=== PATIENT | female | born 1950 | race Caucasian/White ===

== ENCOUNTER 2017-12-16 08:18 | Inpatient (IN) | payer OTHER ==
[2017-11-25 11:11] VITALS: BMI 26.0
--- NOTE | 2017-11-25 11:38 | PAT Medication Instructions ---
Service Date Nov 25, 2017. Current Home Medication List Acetaminophen (Tylenol), 1,000 MG PO prn Medication Instructions For Your Scheduled Surgery - Take the following medications the morning of surgery with a sip of water: Acetaminophen (Tylenol), 1,000 MG PO prn (can take if needed up to four hours before surgery) - Take the following medications as scheduled the night before surgery: Acetaminophen (Tylenol), 1,000 MG PO prn If you have any questions please call us at [phone] or [phone] or [phone]
--- NOTE | 2017-11-25 12:22 | DIAGNOSTIC IMAGING REPORT ---
CHEST 2 VIEWS ROUTINE HISTORY: 67 years-old Female PAT preoperative exam. No acute chest complaints. COMPARISON: None available TECHNIQUE: Single PA view of the chest. A lateral view was not available at time of dictation. FINDINGS: Cardiomediastinal and hilar silhouettes are within normal limits. There is no pneumothorax, pleural effusion, focal airspace consolidation or overt pulmonary edema. Bones of the chest appear grossly intact. Degenerative changes are seen within the shoulders and spine. IMPRESSION: No acute process. The above report was generated using voice recognition software. It may contain grammatical, syntax or spelling errors. Electronically signed by: Ede Ordoñez M.D. 11/25/2017 12:20 PM Dictated Date/Time: 11/25/2017 12:19 PM
[2017-11-25 12:31] LABS: BASO % 0.7 %; BASO ABS # 0.06 K/uL (0-0.2); EOS % 1.6 %; EOS ABS # 0.14 K/uL (0-0.5); HEMATOCRIT 44.3 % (37-47); IG# 0.02 K/uL (0.00-0.02); LYMPH % 29.4 %; LYMPH ABS # 2.56 K/uL (1.2-3.4); MEAN CELL VOLUME 90.4 fL (80-100); MEAN CORPUSCULAR HEMOGLOBIN 30.6 pg (25-34); MEAN CORPUSCULAR HGB CONC 33.9 g/dl (32-36); MEAN PLATELET VOLUME 9.8 fL (7.4-10.4); MONO % 5.4 %; MONO ABS # 0.47 K/uL (0.11-0.59); NEUT % 62.7 %; NEUT ABS # 5.47 K/uL (1.4-6.5); PLATELET COUNT 200 K/uL (130-400); RED CELL DISTRIBUTION WIDTH SD 42.5 fL (36.4-46.3); WHITE BLOOD COUNT 8.72 K/uL (4.8-10.8)
[2017-11-25 13:45] LABS: HEMOGLOBIN A1C 5.2 % (4.5-5.6)
[2017-11-25 14:01] LABS: ALBUMIN 3.5 gm/dl (3.4-5.0); CALCIUM 9.2 mg/dl (8.5-10.1); CREATININE 0.78 mg/dl (0.60-1.20); POTASSIUM 3.9 mmol/L (3.5-5.1)
--- NOTE | 2017-12-15 09:12 | HISTORY & PHYSICAL EXAMINATION ---
DATE OF ADMISSION: 12/16/2017 CHIEF COMPLAINT: Left knee pain. HISTORY OF PRESENT ILLNESS: The patient is a 67-year-old female with known osteoarthritis about her bilateral knees, left worse than right. She has had previous corticosteroid and viscosupplementation injections with short-term relief. Due to ongoing pain and disability with activities of daily living, she now desires to proceed with left total knee arthroplasty. PAST MEDICAL HISTORY: DVT x2. PAST SURGICAL HISTORY: Plastic surgery on her lip as a child. MEDICATIONS: None. ALLERGIES: None. SOCIAL HISTORY: She states a 90-cfmj-cvsi smoking history. REVIEW OF SYSTEMS: Noncontributory. PHYSICAL EXAMINATION: GENERAL: Well-nourished, well-developed, thin elderly female who appears her stated age. HEENT: Normocephalic, atraumatic, extraocular movements intact, oropharynx pink and moist. NECK: Supple without adenopathy. LUNGS: Clear to auscultation bilaterally. HEART: Regular rate and rhythm. ABDOMEN: Soft, nontender, nondistended. EXTREMITIES: The upper extremities are within normal limits. The left knee has a varus alignment. Her range of motion is from 0-135 degrees. X-RAYS: X-rays were reviewed. She has a varus aligned knee. She has moderate degenerative changes about the medial compartment of the left knee with joint space narrowing and osteophyte formation. She has severe patellofemoral DJD with large osteophytes and joint space narrowing. ASSESSMENT: Left knee degenerative joint disease. PLAN: Risks versus benefits were discussed, consent was obtained. The patient's primary care physician is [facility]. We will proceed with left total knee arthroplasty as indicated.
[2017-12-16] VITALS (8 sets, daily range): BP systolic 119–147; BP diastolic 53–76; PULSE 63–93; TEMP 36.4–36.9; O2SAT 96–100; Ht 160 cm; Wt 66.6 kg
[~2017-12-16] VITALS: Ht 160 cm; Wt 66.6 kg
[~2017-12-16 08:18] MED LIST: ACET-1256 PO; ACETAMINOPHEN 500 MG TAB PO SCH; BUPIVACAINE 0.5 % 5 MG/1 ML PF 10ML VIAL ONE; CEFAZOLIN 1000MG IV PUSH 7.5 ML IV SCH; CeleBREX 200 MG CAP PO SCH; DEXAMETHASONE 4 MG TAB PO SCH; FAMOTIDINE 20 MG TAB PO SCH; GABAPENTIN 300 MG CAP PO SCH; LACTATED RINGER'S 1000ML 1,000 ML IV SCH; LACTATED RINGER'S 1000ML 500 ML IV SCH; LACTATED RINGER'S 1000ML IV SCH; METOCLOPRAMIDE HCL 10 MG TAB PO SCH; ROPIVACAINE 0.5% 5 MG/ML 30 ML VIAL ONE; ROPIVACAINE 5MG/ML 30 ML 150 MG, BUPIVACAINE 0.5% MPF INJ 30 ML, EpINEphrine HCL INJ 0.... INFIL SCH
[2017-12-16] MEDS ORDERED: ONDANSETRON INJ 2 MG/ML 2 ML VIAL IV PRN ×2 (08:45→12:30)
[2017-12-16] MEDS ORDERED: HYDROmorphone INJ 2 MG/ML SYR/VIAL IV PRN (08:45)
[2017-12-16] MEDS ORDERED: ATROPINE SULFATE 0.1 MG/ML 5ML SYR IV PRN (08:45)
[2017-12-16] MEDS ORDERED: EpHEDrine SULFATE INJ 50 MG/ML AMP IV PRN (08:45)
[2017-12-16] MEDS ORDERED: PHENYLEPHRINE 100MCG/ML 5ML SYR IV PRN (08:45)
[2017-12-16 09:22] LABS: PTT PATIENT 28.2 SECONDS (21.0-31.0)
[2017-12-16] MEDS ORDERED: MIDAZOLAM HCL 1 MG/ML 2ML VIAL ONE (09:40)
[2017-12-16] MEDS: TRANEXAMIC ACID INJ 1,000 MG x 2 Bags IV SCH ×4 (09:43→15:17)
--- NOTE | 2017-12-16 09:43 | History & Physical Bridge Note ---
H&P Re-Evaluation Bridge Note: I have examined the patient, reviewed the History & Physical and in the interval since the performance of the History & Physical I have noted the following changes of clinical significance: No changes noted
[2017-12-16] MEDS ORDERED: POVIDONE-IODINE OP SOLN 30 ML BTL ONE (10:05)
[2017-12-16] MEDS ORDERED: ORTHO JOINT ANESTHETIC ONE (10:05)
[2017-12-16] MEDS ORDERED: BACITRACIN 50000 UNIT VIAL ONE (10:05)
[2017-12-16] MEDS ORDERED: PROPOFOL IV EMULSION 10 MG/ML 20 ML VIAL IV ONE (11:14)
[2017-12-16] MEDS ORDERED: LIDOCAINE HCL 2% 2 ML VIAL (20MG/ML) ONE (12:19)
--- NOTE | 2017-12-16 12:20 | OPERATIVE REPORT ---
DATE OF OPERATION: 12/16/2017 PREOPERATIVE DIAGNOSIS: Osteoarthritis, left knee. POSTOPERATIVE DIAGNOSIS: Osteoarthritis, left knee. PROCEDURE: Left total knee arthroplasty. SURGEON: Dr. Narayan. RISK SPECIALIST: Jack Auguste PA-C. ANESTHESIA: Spinal. COMPLICATIONS: None. IMPLANTS USED: Femoral size 3, tibia size 3, tibial poly 16, patella 33. CONDITION: Recovery room stable. OPERATION AND FINDINGS: Following induction of spinal anesthesia, the patient's left leg was prepped and draped in the usual sterile manner. Limb was exsanguinated with an Esmarch bandage and tourniquet was inflated to 350 mmHg. A longitudinal incision was made anteriorly. Subcutaneous tissue was sharply dissected. Electrocautery was used for hemostasis. Prepatellar bursa was incised and median parapatellar incision was performed. Patella was everted and the knee was flexed. Fat pad was removed to aid in visualization and the anterior and posterior cruciate ligaments were removed. The medial face of the tibia was cleared of soft tissue first with a Bovie and a Shin elevator. This tissue was retracted posteriorly using a blunt Hohmann. A Royal retractor was used to expose the synovium above on the anterior aspect of the femur and this was removed down to bone. The PSI guide was placed on the distal femur and two pins were placed anteriorly and kept in position and two additional pins were placed distally and removed. The distal femoral cutting block was placed in position and the distal femoral cut was used in the +0 setting. Next, the cutting block was removed and the size 3 block was placed in the distal end of the femur. Care was taken to ensure appropriate external rotation and feeler gauge was used to ensure no notching would occur. The femoral block was centered on the distal femur and in the medial and lateral direction and was fixed using two bone screws. The gold pins were then removed. The oscillating saw was used to create the bone cuts and the distal femoral cutting block was removed and the reciprocating saw was used to further trim the femoral cuts as well as a deep in the area for the trochlear groove. Next, posterior condyle remnants were removed. Following this, a meniscal clamp and knife were utilized to remove the anterior portion of both medial and lateral meniscus. The proximal tibia PSI guide was placed into position and the proximal tibial cutting guide was screwed into position. The extra medullary alignment guide was utilized to ensure appropriate alignment. The proximal tibia was cut and the proximal tibial cutting block was removed and this bone fragment was removed. The appropriate guide was used to perform the notch cut on the distal femur and a lamina director custom and a cochlear knife were utilized to finish both medial and lateral meniscectomies to remove any remnants of the posterior or anterior cruciate ligaments. Following this, the distal femoral component was impacted into position and blunt Dario was used to sublux the tibia anteriorly. The proximal tibia was sized and a 3 tibial tray was chosen as the size to be used. This was put into position and appropriate external rotation and a double check with extramedullary alignment guide was performed. The canal for the tibial stem was prepared first with a 17 mm drill and then the punch and a mallet and the trial tibial poly was placed. A 16 was chosen the size to be used. It was brought to extension and the patella was prepared with the patellar reamer. A 33 component was chosen the size to be used. The trial component was placed and knee was taken through a full range of motion and there was found to be no lateral subluxation of the tibia. No lateral release was required. The trials were all removed. The final components were obtained and assembled. Cement was mixed. The knee was thoroughly irrigated and the ortho mix was injected about the knee joint. The final components were cemented into position. After thoroughly suctioning and drying the bone ends, all excess cement was removed. The knee was held in extension while the cement hardened. The wound was irrigated and closed over a Hemovac drain. #1 Vicryl was used to close the extensor mechanism. Subcutaneous tissues closed using 0 Dexon. Skin was closed with jeni. Sterile dressing of Adaptic, 4 x 4's, sterile Webril, and Neto was applied. The patient tolerated the procedure well. Due to the complex nature of the procedure, the entire surgery was performed with the operational assistance of Jack Auguste PA-C. The faculty research assistant, under direct supervision, was involved in the actual performance of all aspects of the surgical procedure including hemostasis, tissue retraction and incision, instrument management, patient positioning, and wound closure. I attest to the content of the Intraoperative Record and any orders documented therein. Any exceptions are noted below. HEMANTH
[2017-12-16] MEDS ORDERED: ZOLPIDEM TARTRATE 5 MG TAB PO PRN (12:30)
[2017-12-16] MEDS ORDERED: MoRPHine SULFATE 2 MG/ML CARP IV PRN (12:30)
[2017-12-16] MEDS ORDERED: METOCLOPRAMIDE HCL INJ 5 MG/ML 2 ML VIAL IV PRN (12:30)
[2017-12-16] MEDS ORDERED: ALUMINUM/MAGNESIUM/SIMETH (MAALOX MAX) 30 ML UDC PO PRN (12:30)
[2017-12-16] MEDS ORDERED: MAGNESIUM HYDROXIDE SUSP 30 ML UDC PO PRN (12:30)
--- NOTE | 2017-12-16 13:05 | DIAGNOSTIC IMAGING REPORT ---
L KNEE 1 OR 2 VIEWS ROUTINE CLINICAL HISTORY: AP/LATERAL IN PACU LEFT KNEE COMPARISON: None. DISCUSSION: Evidence for a total left knee arthroplasty. Good contact between prosthetic and underlying bone. Expected postoperative soft tissue change. IMPRESSION: Anatomic alignment post left knee total arthroplasty. The above report was generated using voice recognition software. It may contain grammatical, syntax or spelling errors. Electronically signed by: Matt Wu M.D. 12/16/2017 1:04 PM Dictated Date/Time: 12/16/2017 12:59 PM
--- NOTE | 2017-12-16 14:05 | Anesthesiology Progress Note ---
Anesthesia Post Op Note Date & Time Dec 16, 2017 at 14:05 Vital Signs Pain Intensity: 0 Vital Signs Past 12 Hours Date Time Temp Pulse Resp B/P (MAP) Pulse Ox O2 Delivery O2 Flow Rate FiO2 12/16/17 13:15 64 17 94/82 100 Nasal Cannula 2 12/16/17 13:05 36.1 65 16 101/60 99 Nasal Cannula 2 12/16/17 12:55 67 19 119/68 99 Nasal Cannula 2 12/16/17 12:45 61 14 103/59 99 Nasal Cannula 2 12/16/17 12:35 68 15 110/60 99 Nasal Cannula 2 12/16/17 12:29 36.5 76 14 114/60 98 Nasal Cannula 2 12/16/17 09:18 36.5 63 20 147/73 (97) 97 Notes Mental Status: alert / awake / arousable, participated in evaluation Pt Amnestic to Procedure: Yes Nausea / Vomiting: adequately controlled Pain: adequately controlled Airway Patency, RR, SpO2: stable & adequate BP & HR: stable & adequate Hydration State: stable & adequate Anesthetic Complications: no major complications apparent
[2017-12-16] MEDS ORDERED: MoRPHine SULFATE 4 MG/ML 1 ML CARP\\VIAL IV PRN (14:15)
[2017-12-16] MEDS: D5W AND 1/2NSS + 20MEQ KCL 1,000 ML IV SCH ×2 (16:11→23:51)
[2017-12-16] MEDS: KETOROLAC TROMETHAMINE 15 MG/ML VIAL IV. SCH ×2 (16:11→20:35)
[2017-12-16] MEDS: FERROUS GLUCONATE 324 MG TAB PO SCH (19:10)
[2017-12-16] MEDS: OXYCODONE HCL IR 5 MG TAB (IMMEDIATE RELEASE) PO PRN (19:11)
[2017-12-16] MEDS: CEFAZOLIN IV 1,000 MG in SYRINGE 0 ML IV SCH (19:11)
[2017-12-16] MEDS: DOCUSATE SODIUM 100 MG CAP PO SCH (20:37)
[2017-12-16] MEDS ORDERED: ASPIRIN 81 MG ECTAB PO SCH (21:00)
[2017-12-16] MEDS: ACETAMINOPHEN 500 MG TAB PO SCH (21:15)
[2017-12-17] MEDS: KETOROLAC TROMETHAMINE 15 MG/ML VIAL IV. SCH ×2 (02:31→07:57)
[2017-12-17] MEDS: CEFAZOLIN IV 1,000 MG in SYRINGE 0 ML IV SCH (02:31)
[2017-12-17 03:22] VITALS: BP 111/68; PULSE 66; TEMP 36.6; O2SAT 98
[2017-12-17] MEDS: ACETAMINOPHEN 500 MG TAB PO SCH ×3 (05:36→21:11)
[2017-12-17 06:59] LABS: HEMATOCRIT 31.5 % (37-47); HEMOGLOBIN 10.5 g/dL (12.0-16.0); MEAN CELL VOLUME 87.7 fL (80-100); MEAN CORPUSCULAR HEMOGLOBIN 29.2 pg (25-34); MEAN CORPUSCULAR HGB CONC 33.3 g/dl (32-36); MEAN PLATELET VOLUME 9.5 fL (7.4-10.4); PLATELET COUNT 192 K/uL (130-400); RED CELL DISTRIBUTION WIDTH CV 12.8 % (11.5-14.5); RED CELL DISTRIBUTION WIDTH SD 41.2 fL (36.4-46.3); WHITE BLOOD COUNT 17.19 K/uL (4.8-10.8)
[2017-12-17 07:28] LABS: CREATININE 0.69 mg/dl (0.60-1.20); POTASSIUM 4.3 mmol/L (3.5-5.1)
[2017-12-17] MEDS ORDERED: DEXAMETHASONE INJ 10 MG in SYRINGE 0 ML IV SCH (07:30)
[2017-12-17 07:51] VITALS: BP 118/62; PULSE 67; TEMP 36.7; O2SAT 100
--- NOTE | 2017-12-17 07:53 | Orthopedic Progress Note ---
Orthopedic Progress Note Date of Service Dec 17, 2017. Subjective Post OP Day: 1 Reports: feeling well Objective dressing C/D/I (Hemovac in place) Mild foot drop noted Date Time Temp Pulse Resp B/P (MAP) Pulse Ox O2 Delivery O2 Flow Rate FiO2 12/17/17 03:22 36.6 66 16 111/68 (82) 98 Room Air 12/16/17 23:45 Room Air 12/16/17 23:20 36.6 93 16 123/71 (88) 96 Room Air 12/16/17 19:30 36.9 73 18 119/74 (89) 97 Room Air 12/16/17 16:28 36.7 77 18 130/71 (90) 98 Room Air 12/16/17 15:31 36.5 73 18 121/74 (90) 98 Room Air 12/16/17 14:30 36.7 71 19 123/76 (92) 99 Room Air 12/16/17 14:00 36.7 72 19 120/53 (75) 100 Nasal Cannula 1.0 12/16/17 13:30 36.4 63 16 125/67 (86) 100 Nasal Cannula 2.0 12/16/17 13:30 Nasal Cannula 2.0 12/16/17 13:30 Nasal Cannula 2.0 12/16/17 13:15 64 17 94/82 100 Nasal Cannula 2 12/16/17 13:05 36.1 65 16 101/60 99 Nasal Cannula 2 12/16/17 12:55 67 19 119/68 99 Nasal Cannula 2 12/16/17 12:45 61 14 103/59 99 Nasal Cannula 2 12/16/17 12:35 68 15 110/60 99 Nasal Cannula 2 12/16/17 12:29 36.5 76 14 114/60 98 Nasal Cannula 2 12/16/17 09:18 36.5 63 20 147/73 (97) 97 Laboratory Results 24 Hours: Test 12/16/17 08:52 12/17/17 06:38 Prothromb Time International Ratio 1.0 Prothrombin Time 10.2 SECONDS Hematocrit 31.5 % Hemoglobin 10.5 g/dL Assessment & Plan Assessment: 67 yo female stable POD #1 s/p left TKA, mild foot drop likely secondary to intra-op injection Plan: 1. Med management' 2. DVT prophylaxis- Xarelto, SCDs 3. PT/OT 4. D/C planning- home w/ HH
--- NOTE | 2017-12-17 07:55 | Discharge Instructions ---
Discharge Instructions Date of Service Dec 17, 2017. Admission Reason for Admission: Left Knee Osteoarthritis Discharge Discharge Diagnosis / Problem: Left knee arthritis Discharge Goals Goal(s): Decrease discomfort, Improve function Activity Recommendations Activity Limitations: as noted below Weightbearing Status: Left weightbearing (as tolerated) . Instructions / Follow-Up Instructions / Follow-Up ACTIVITY RECOMMENDATIONS: SELF CARE INSTRUCTIONS AFTER TOTAL KNEE REPLACEMENT A. You may need to continue a physical therapy program after discharge from the hospital. There are several options available to you. Your doctor will assist you in selecting the best one for you. 1. An out-patient facility 2 to 3 times a week for therapy or home therapy. 2. Continue working on all exercises taught to you in the hospital. Your goals should be to increase bending of your knee to 90 degrees and beyond and to fully straighten your knee. B. You may progress at your own pace from walking with a walker or crutches to a cane; then to no assistive devices. C. Make walking a part of your daily routine. Be up as much as comfortable with rest periods throughout the day. Rest with leg elevation is very important. Use the ice wrap frequently for the first 3-4 weeks. D. There are no restrictions on activities. You may ride in a car, shop, participate in safety belt installer and all social activities. E. Wear the long elastic stockings (CHELSIE hose) 20 hours a day for 2 weeks after surgery. They can be removed several times a day for laundering and for a bath. F. You may shower, no tub baths until cleared by your doctor. SPECIAL CARE INSTRUCTIONS: VERY IMPORTANT TO READ AND REVIEW A. There are a few signs you need to watch for after you are home. Call [facility] if you notice any of the followin. Increased severe knee pain. Some pain is expected especially when you exercise. 2. Increased swelling in your leg or knee; pain or swelling of the calf muscle in either lower leg. 3. Any fluid drainage from the incision. 4. Shortness of breath or chest pain. B. Please call [facility] at if you have any concerns or questions about your operation or recovery. The doctor or his nurse will return your call promptly. C. You must take antibiotics before dental work, bladder, bowel or other surgery. Your doctor will provide you with a permanent care to carry describing this precaution. IMPORTANT: * REMEMBER TO TAKE ASPIRIN, 81 MG, TWICE DAILY FOR 4 WEEKS UNLESS OTHERWISE DIRECTED. THIS IS YOUR BLOOD THINNER. * HIGH RISK PATIENTS MAY BE PRESCRIBED A STRONGER BLOOD THINNER. THIS WILL BE PROVIDED AT DISCHARGE. * CALL IF INCREASED PAIN, REDNESS, DRAINAGE OR FEVER GREATER THAT 101. * WEAR CHELSIE HOSE 20 HOURS PER DAY FOR 2 WEEKS. Silverlon- This is a large adhesive bandage that contains silver ions. This helps your incision heal by fighting off bacteria and protecting it from the outside environment. You are permitted to shower with this dressing. This will remain on your incision for 7 days and then should be removed. Some visible blood or drainage through the dressing window is normal. If there is significant drainage or leaking noted before the 7 days notify your doctor's office immediately. Once removed, keep incision clean and dry. If there is any drainage or redness noted, please call your surgeon. Maintain Zipline closure when removing SIlverlon. FOLLOW UP VISIT: If appointment is not already scheduled: Please call [facility] to make a follow-up appointment for 2 weeks after your surgery at . Current Hospital Diet Patient's current hospital diet: Regular Diet Discharge Diet Recommended Diet: Regular Diet Procedures Procedures Performed: Left total knee arthroplasty Pending Studies Studies pending at discharge: no Laboratory Results Hemoglobin A1c Test 11/25/17 11:50 Range/Units Estimated Average Glucose 103 mg/dl Hemoglobin A1c 5.2 4.5-5.6 % Medical Emergencies . Who to Call and When: Medical Emergencies: If at any time you feel your situation is an emergency, please call 911 immediately. . Non-Emergent Contact Non-Emergency issues call your: Surgeon Call Non-Emergent contact if: temperature is above 101.5, your pain is not controlled, wound has increased drainage, wound has increased redness . . "Provider Documentation" section prepared by Julio César Parish PA-C. . [facility] Drug Monitoring Program Search Results: patient reviewed within database, no issues identified
--- NOTE | 2017-12-17 08:23 | Anesthesiology Progress Note ---
Anesthesia Post Op Note Date & Time Dec 17, 2017 at 08:23 Vital Signs Pain Intensity: 5.0 Vital Signs Past 12 Hours Date Time Temp Pulse Resp B/P (MAP) Pulse Ox O2 Delivery O2 Flow Rate FiO2 12/17/17 07:51 36.7 67 20 118/62 (80) 100 Room Air 12/17/17 03:22 36.6 66 16 111/68 (82) 98 Room Air 12/16/17 23:45 Room Air 12/16/17 23:20 36.6 93 16 123/71 (88) 96 Room Air Notes Mental Status: alert / awake / arousable, participated in evaluation Pt Amnestic to Procedure: Yes Nausea / Vomiting: adequately controlled Pain: adequately controlled Airway Patency, RR, SpO2: stable & adequate BP & HR: stable & adequate Hydration State: stable & adequate Neuraxial Anesthesia: sensory block resolved Anesthetic Complications: no major complications apparent
[2017-12-17 08:24] VITALS: O2SAT 100
--- NOTE | 2017-12-17 08:48 | Clinical Documentation Query ---
CLINICAL DOCUMENTATION QUERY Dr. URBANO, In your clinical opinion is this patient being managed for: ( ) Acute blood loss anemia ( ) Not Agree ( ) Other explanation of clinical findings (Please Explain) ( ) Unable to determine (Please Define) ( ) Need to Discuss The medical record reflects the following clinical findings, treatment, and risk factors. Clinical Indicators: 67 yo female presenting with L knee DJD. Baseline Hgb 15, Hct 44.3, post op Hgb 10.5, Hct 31.5, EBL 10 cc however hemovac drainage 1305 thus far Treatment: monitor CBC Risk Factors: surgical/hemovac blood loss Please clarify and document your clinical opinion in the progress notes and discharge summary. Terms such as "probable", "suspected", "likely", "questionable", "possible", or "still to be ruled out" are acceptable. IF IN AGREEMENT, YOU MUST DOCUMENT ABOVE DIAGNOSTIC STATEMENT IN DAILY PROGRESS NOTES AND DISCHARGE SUMMARY. This document is not part of the patient's record. Thank You, Veda Sandhu RN [phone]
[2017-12-17] MEDS: MULTIVITAMIN TAB PO SCH (09:00)
[2017-12-17] MEDS: PANTOprazole SOD 40 MG TAB PO SCH (09:08)
[2017-12-17] MEDS: FERROUS GLUCONATE 324 MG TAB PO SCH ×3 (09:08→17:48)
[2017-12-17] MEDS: DOCUSATE SODIUM 100 MG CAP PO SCH ×2 (09:08→20:17)
[2017-12-17] MEDS: OXYCODONE HCL IR 5 MG TAB (IMMEDIATE RELEASE) PO PRN ×2 (09:09→21:10)
[2017-12-17 11:40] VITALS: BP 130/72; PULSE 72; TEMP 36.7; O2SAT 100
[2017-12-17] MEDS: RIVAROXABAN 10 MG TAB PO SCH (11:57)
[2017-12-17 15:48] VITALS: BP 104/63; PULSE 65; TEMP 36.6; O2SAT 98
[2017-12-17] MEDS: CeleBREX 200 MG CAP PO SCH (20:18)
[2017-12-17 22:55] VITALS: BP 110/67; PULSE 68; TEMP 36.6; O2SAT 98
[2017-12-18] MEDS: ACETAMINOPHEN 500 MG TAB PO SCH (06:19)
[2017-12-18 06:25] VITALS: BP 122/75; PULSE 67; TEMP 36.9; O2SAT 99
[2017-12-18 07:30] VITALS: BP 122/75; PULSE 67; TEMP 36.9; O2SAT 99
[2017-12-18] MEDS: MULTIVITAMIN TAB PO SCH (07:40)
[2017-12-18] MEDS: PANTOprazole SOD 40 MG TAB PO SCH (07:40)
[2017-12-18] MEDS: CeleBREX 200 MG CAP PO SCH (07:40)
[2017-12-18] MEDS: DOCUSATE SODIUM 100 MG CAP PO SCH (07:40)
[2017-12-18] MEDS: FERROUS GLUCONATE 324 MG TAB PO SCH (07:40)
[2017-12-18] MEDS: OXYCODONE HCL IR 5 MG TAB (IMMEDIATE RELEASE) PO PRN (07:41)
--- NOTE | 2017-12-18 08:00 | Orthopedic Progress Note ---
Orthopedic Progress Note Date of Service Dec 18, 2017. Subjective Post OP Day: 2 Reports: feeling well, pain controlled w PO medications, Denies: complaints, chest pain, SOB, nausea / vomiting, light headedness, calf pain Objective calves soft nontender, N/V intact, capillary refill less than 2 sec., dressing C /D/I, A&O x3, toes mobile Date Time Temp Pulse Resp B/P (MAP) Pulse Ox O2 Delivery O2 Flow Rate FiO2 12/18/17 07:36 Room Air 12/18/17 07:30 36.9 67 16 99 Room Air 12/18/17 06:25 36.9 67 16 122/75 (91) 99 Room Air 12/17/17 22:55 36.6 68 16 110/67 (81) 98 Room Air 12/17/17 20:40 Room Air 12/17/17 15:48 36.6 65 18 104/63 (77) 98 Room Air 12/17/17 11:40 36.7 72 20 130/72 (91) 100 Room Air 12/17/17 08:40 Room Air 12/17/17 08:24 100 Room Air Assessment & Plan Assessment: 67 yo female stable POD #3 s/p left TKA Plan: 1. Med management' 2. DVT prophylaxis- Anjali Anguiano 3. PT/OT 4. D/C planning- home w/ HH 5. Foot Drop has resolved
[2017-12-18] MEDS ORDERED: ONDA8TAB6 PO (08:02)
[2017-12-18] MEDS ORDERED: ACET-24 PO (08:02)
[2017-12-18] MEDS ORDERED: RXC5 PO (08:02)
[2017-12-18] MEDS ORDERED: CLB200 PO (08:02)
[2017-12-18] MEDS ORDERED: XRL10 PO ×2 (08:32→08:37)
[2017-12-18] MEDS: RIVAROXABAN 10 MG TAB PO SCH (08:34)
== END 2017-12-18 10:30 | disposition home health service (06) | DRG 470 ==
LOC: C.ACU 08:18 → C.3E 09:34 → ENRESERV 13:14
PROC: 0SRD0J9 Replacement of Left Knee Joint with Synthetic Substitute, Cemented, Open Approach (ICD-10-PCS; principal; 2017-12-16 10:45)
DX: M17.0 Bilateral primary osteoarthritis of knee (principal); F17.200 Nicotine dependence, unspecified, uncomplicated; Z86.718 Personal history of other venous thrombosis and embolism